=== PATIENT | male | born 1985 | race African-American/Black ===

== ENCOUNTER 2025-07-03 02:31 | Observation (INO) | payer OTHER, SELFPAY ==
[2025-07-03 02:37] VITALS: BP 147/97; PULSE 110; RESP 16; TEMP 38; O2SAT 98
--- NOTE | 2025-07-03 02:45 | RT.EKG_ITS ---
APPROVED REPORT Exam: Resting ECG Reason for Exam: QT prolonging meds Patient Location: E HR:86 bpm ECG Measurements Heart Rate 86 AXIS SD 185 P 51 QRSd 96 QRS 85 QT 370 T 18 QTc 444 Conclusion Sinus rhythm...normal P axis, V-rate 60- [address] segment or T wave abnormalities to suggest occlusive OK
--- NOTE | 2025-07-03 02:45 | DI.RAD_ITS ---
Exam(s) XR CHEST 2V PA LATERAL EXAM: XR CHEST 2V PA LATERAL CLINICAL HISTORY: fever TECHNIQUE: 2D digital imaging was performed. Two views. COMPARISON: No exams were available for comparison FINDINGS: HEART: Normal size. Aorta: Not dilated. PULMONARY VASCULATURE: Normal. MEDIASTINUM: Unremarkable. LUNGS: There is area of increased density in the right upper lobe consistent with pneumonia. The left lung is clear. PLEURAL SPACE: No pleural effusion or pneumothorax. BONE:Unremarkable for age. SOFT TISSUES: Unremarkable. IMPRESSION: Right upper lobe pneumonia. The preliminary [facility] report was reviewed. DATA REPOSITORY: RADIATION DOSE DELIVERED:
--- NOTE | 2025-07-03 02:57 | W.ED.GENAD ---
Discharge Plan Disposition Patient Disposition: Admit to [facility] Condition: Serious Discharge Details Clinical Impression: Pneumonia, HIV (human immunodeficiency virus infection), Hematuria, Proteinuria, Anemia Primary Care Provider: Unknown,Unknown ED Provider: Amalia Tijerina Home Meds and New Rx's Prescriptions: No Action escitalopram oxalate [Lexapro] 20 mg tablet 20 mg PO DAILY Dovato 50-300 mg tablet 1 tab PO DAILY HPI General Mode of arrival: ambulatory. Date/Time Provider Initiated Documentation: 07/03/25 02:34. Limitations to Documentation: no limitations. Information obtained by: patient. HPI Narrative: 39yo M with hx HTN, prediabetes, depression, HIV +, presenting for nausea and vomiting. Started to feel unwell yesterday morning, general malaise, low energy, anorexia, subjective fever, rigors. Symptoms have been getting worse and at around 9pm he began vomiting. Nonbloody nonbilious. Has not been able to keep anything down since then. Abdomen hurts just before and while he is vomiting, otherwise no abdominal pain. No constipation or diarrhea. No bloody stool. Mild intermittent cough which he reports is chronic and not worse than baseline, no difficulty breathing or chest pain. No sore throat or rhinnorhea. No dysuria or hematuria. No headache or neck pain. No recent illness. Otherwise in his usual state of health. Taking his antiretrovirals as prescribed. Gets CD4 and viral load checked every 6 months, reports most recently had undetectable viral load and CD4 in 900's. Related Data Home Medications ?Medication ?Instructions ?Recorded ?Confirmed dolutegravir 50 mg-lamivudine 300 1 tab PO DAILY 07/03/25 07/03/25 mg tablet (Dovato) escitalopram oxalate 20 mg tablet 20 mg PO DAILY 07/03/25 07/03/25 (Lexapro) Allergies Allergy/AdvReac Type Severity Reaction Status Date / Time No Known Allergies Allergy Unverified 07/03/25 02:41 General Stated Complaint: Nausea/Vomit/Diar DIVYA: 3 Exam Narrative Exam Narrative: General: Alert, in no acute distress. Head: Normocephalic, atraumatic Neck: Trachea midline, ?Neck supple. ENT: ?MMM.? No oropharygeal lesions or exudate. Cardiac: ?Tachycardiac to low 100's, regular, no murmurs appreciated Resp: No respiratory distress. CTAB. Abd: ?Soft, non-distended, nontender to light and deep palpation throughout. Negative Donald's. : ?No suprapubic tenderness. No CVA tenderness. Extremities: ?No deformities.? No peripheral edema. Neurologic: GCS 15. ? Moves all extremities freely against gravity. Negative Kernig's and Brudsinsky's. Course Vital Signs Vital signs: Vital Signs Temperature 38 C H 07/03/25 02:37 Pulse 110 H 07/03/25 02:37 Respiratory Rate 16 07/03/25 02:37 Blood Pressure 147/97 H 07/03/25 02:37 Pulse Oximetry 98 07/03/25 02:37 Temperature 38 C H 07/03/25 02:37 Temperature Source Oral 07/03/25 02:37 Pulse 110 H 07/03/25 02:37 Respiratory Rate 16 07/03/25 02:37 Blood Pressure 147/97 H 07/03/25 02:37 Blood Pressure Position Sitting 07/03/25 02:37 Pulse Oximetry 98 07/03/25 02:37 Oxygen Delivery Method Room Air 07/03/25 02:37 Oxygen Flow Rate 0 07/03/25 02:37 Medical Decision Making 39yo M with hx HTN, prediabetes, depression, HIV +, presenting for nausea and vomiting. Started to feel unwell yesterday morning, general malaise, low energy, anorexia, subjective fever, rigors; 2100 began vomiting and has not been able to keep anything down. No new respiratory symptoms, has mild cough at baseline. Low-grade fever 38.0 on arrival with HR in 110. Non-toxic on exam, lungs CTAB and absolutely no abdominal tenderness to suggest appendicitis, pancreatitis, biliary pathology, or emergent intrabdominal process. With lack of respiratory symptoms, would not treat empirically for flu with Tamiflu; will send viral swab. No bloody stool or diarrhea to suggest invasive gastroentertitis. He reports undetectable viral load and CD4 count in 900's on his most recent check within the last 6 months and is adherent to his HAART so doubt immunocomprimised; however as I am unable to get a CD4 count here to confirm this will evaluate more broadly with UA, CXR, and send blood cultures. Will give 1L IVFB, IV tylenol, toradol, zofran for symptoms while awaiting results of workup. Will send blood cultures given fever and tachycardia here and unable to confirm CD4 (is send-out). -EKG sinus tachycardia, appropriate intervals, no ST segment or T wave abnormalities to suggest occlusive NC. -Labs reviewed as below, CBC reassuring with no leukocytosis or leukopenia and normal ALC, CMP with normal electrolytes and LFTs and no actionable abnormalities, Mg normal, VBG reassuring with no acidosis and lactate is normal, lipase not suggestive of pancreatitis. UA not infected but does have trace hematuria as well as proteinuria (no hx of glomerulonephritis, no recent illness to suggest HUS). Respiratory viral swab negative for COVID, flu, RSV. -CXR independently reviewed; focal consolidation in RUL on my view, radiology read below with sizable right upper lobe pneumonia. On reassessment patient reports feeling somewhat better. Vital signs improved, HR 90's to low 100's. Will treat for CAP with ceftriaxone and azithromycin (would not cover for opportunistic infections at this time). Given his description for rigors and sweats, and inability to confirm appropriate CD4 count in a timely fashion (despite reassuring PESI) warrants admission for further workup and initial treatment of pneumonia and to follow blood cultures Discussed with [facility] hospitalist Dr. Ford and accepted to medicine service; awaiting admission orders and transfer to the floor. IMPRESSION: Sizable right upper lobe pneumonia. Lab Data Lab results reviewed: Yes I reviewed the patient's lab results. Labs: 07/03/25 03:40 Blood Blood Culture - Pending 07/03/25 03:17 Blood Blood Culture - Pending Laboratory Tests Range/Units 07/03/25 07/03/25 07/03/25 02:41 03:17 03:25 WBC (4.4-10.8) 10^3/uL 6.62 RBC (4.36-5.78) 10^6/uL 4.44 Hgb (13.5-17.5) g/dL 11.2 L Hct (40.0-50.0) % 35.3 L MCV (80-95) fL 80 MCH (27.0-33.0) pg 25.2 L MCHC (32.0-36.0) % 31.7 L RDW (11.8-14.1) % 14.6 H Plt Count (130-400) 10^3/uL 283 MPV (8.0-11.0) fL 9.7 Immature Gran % % 0.3 Neutrophils % % 66.2 Lymphocytes % % 22.1 Monocytes % % 10.3 Eosinophils % % 0.6 Basophils % % 0.5 Nucleated RBC % (0.0-0.3) % 0.0 Absolute Neutrophils (1.2-6.7) 10^3/uL 4.39 Absolute Lymphocytes (1.2-3.4) 10^3/uL 1.46 Absolute Monocytes (0.1-0.8) 10^3/uL 0.68 Absolute Eosinophils (0.0-0.7) 10^3/uL 0.04 Absolute Basophils (0.0-0.2) 10^3/uL 0.03 VBG pH (7.31-7.41) 7.46 H VBG pCO2 (41-51) mmHg 40 L VBG pO2 mmHg 38 VBG HCO3 (23-28) mmol/L 28 VBG Total CO2 (24-29) mmol/L 26 VBG O2 Saturation % 77 VBG Base Excess (-2-3) mmol/L 4 H VBG Lactate (<or=2.0) mmol/L 0.8 Sodium (136-145) mmol/L 141 Potassium (3.5-5.1) mmol/L 3.5 Chloride (98-107) mmol/L 105 Carbon Dioxide (20.0-31.0) mmol/L 26.3 Anion Gap (3-11) mmol/L 9.7 BUN (9-23) mg/dL 11 Creatinine (0.73-1.18) mg/dL 1.15 Est GFR (CKD-EPI 2020) (mL/min/1.73m2) 70.55 Glucose (74-106) mg/dL 134 H Calcium (8.3-10.6) mg/dL 8.9 Magnesium (1.6-2.6) mg/dL 1.9 Total Bilirubin (0.2-1.2) mg/dL 0.60 AST (<34) U/L 25 ALT (10-49) U/L 41 Alkaline Phosphatase (46-116) U/L 113 Total Protein (5.7-8.2) g/dL 8.3 H Albumin (3.2-5.0) g/dL 4.4 Lipase (<53) U/L 24 Urine Color (Yellow) Yellow Urine Clarity (Clear) Clear Urine pH (5-8) 7.5 Ur Specific [place] (1.005-1.025) 1.015 Urine Protein (Neg-Trace) mg/dL 100 H Urine Ketones (Negative) mg/dL Negative Urine Blood (Negative) Trace-intact H Urine Nitrite (Negative) Negative Urine Bilirubin (Negative) Small H Urine Urobilinogen (Up to 0.2) mg/dL 1.0 H Ur Leukocyte Esterase (Negative) Negative Urine RBC (0-2) HPF 5-10 H Urine WBC (0-5) HPF 0-2 Ur Epithelial Cells (Negative) HPF Negative Urine Crystals (Negative) HPF Negative Urine Bacteria (Negative) HPF Few Urine Casts (Negative) LPF Negative Urine Mucus (Negative) Moderate Urine Other (Negative) Rare Renal Ur Culture Indicated? No Urine Glucose (Negative) mg/dL Negative COVID-19 Source Nasopharynx SARS-CoV-2 (PCR) (Negative) Negative Influenza Type A (PCR) (Negative) Negative Influenza Type B (PCR) (Negative) Negative RSV (PCR) (Negative) Negative PFSH All Active Problems (Updated 07/03/25 @ 05:08 by Amalia Tijerina MD) Anemia (Chronic) Proteinuria (Acute) Hematuria (Acute) HIV (human immunodeficiency virus infection) (Acute) Pneumonia (Acute) Nausea & vomiting (Acute) HIV (human immunodeficiency virus infection) (Acute) Hematuria (Acute) Pneumonia (Acute) Social History Smoking/Tobacco Use Status: Current every day Tobacco Type: cigarettes Smoking risk assessment performed?: Yes Drug use: Never Substance use type: does not use
[2025-07-03 03:21] LABS: BE (Venous) 4 mmol/L (-2-3); HCO3 (Venous) 28 mmol/L (23-28); O2 Sat (Venous) 77 %; TCO2 (Venous) 26 mmol/L (24-29); pCO2 (Venous) 40 mmHg (41-51); pO2 (Venous) 38 mmHg
[2025-07-03 03:23] LABS: Abs Immature Grans 0.02 10^3/uL (0.0-0.06); HCT 35.3 % (40.0-50.0); HGB 11.2 g/dL (13.5-17.5); Immature Grans % 0.3 %; MCH 25.2 pg (27.0-33.0); MCHC 31.7 % (32.0-36.0); MCV 80 fL (80-95); MPV 9.7 fL (8.0-11.0); Platelet Count 283 10^3/uL (130-400); RBC 4.44 10^6/uL (4.36-5.78); RDW 14.6 % (11.8-14.1); RDW-SD 42.2 fL; WBC 6.62 10^3/uL (4.4-10.8)
[2025-07-03 03:27] LABS: COVID-19 PCR Negative (Negative); RSV PCR Negative (Negative)
[2025-07-03] MEDS: ACETAMINOPHEN 1,000 MG/100 ML BAG 400 MG IVPB (03:28)
[2025-07-03] MEDS: Normal Saline 1,000 ML 1000 ML IV (03:28)
[2025-07-03] MEDS: Ketorolac 15 MG/ML VIAL IVP (03:29)
[2025-07-03] MEDS: Ondansetron 4 MG/2 ML VIAL IVP ×2 (03:29→11:52)
[2025-07-03 03:38] LABS: Lipase 24 U/L (<53)
[2025-07-03 03:41] LABS: Magnesium 1.9 mg/dL (1.6-2.6)
[2025-07-03 03:43] LABS: ALT 41 U/L (10-49); AST 25 U/L (<34); Albumin 4.4 g/dL (3.2-5.0); Alkaline Phosphatase 113 U/L (46-116); Anion Gap 9.7 mmol/L (3-11); BUN 11 mg/dL (9-23); Bilirubin, Total 0.60 mg/dL (0.2-1.2); CO2 26.3 mmol/L (20.0-31.0); Calcium 8.9 mg/dL (8.3-10.6); Chloride 105 mmol/L (98-107); Glucose 134 mg/dL (74-106); Potassium 3.5 mmol/L (3.5-5.1); Sodium 141 mmol/L (136-145); Total Protein 8.3 g/dL (5.7-8.2)
[2025-07-03 03:50] LABS: Glucose Negative (Negative)
[2025-07-03 04:01] LABS: C & S Indicated? No; WBC 0-2 HPF (0-5)
--- NOTE | 2025-07-03 04:10 | DI.[facility]_ITS ---
PROCEDURE INFORMATION: Exam: XR Chest Exam date and time: 07/03/2025 4:00 AM Age: 39 years old Clinical indication: Fever TECHNIQUE: Imaging protocol: Radiologic exam of the chest. Views: 2 views. COMPARISON: No relevant prior studies available. FINDINGS: Lungs: Sizable right upper lobe pneumonia. Pleural spaces: Unremarkable. No pleural effusion. No pneumothorax. Heart/Mediastinum: Unremarkable. No cardiomegaly. Bones/joints: Unremarkable. IMPRESSION: Sizable right upper lobe pneumonia. Dictated and Authenticated by: Jesús Bettencourt MD. Orderin Lilliana Holland MD
[2025-07-03] MEDS: cefTRIAXone 1 GM/50 ML BAG IVPB (04:28)
[2025-07-03 04:32] VITALS: BP 114/61; PULSE 85; RESP 16; TEMP 37.6; O2SAT 99
[2025-07-03] MEDS: AZITHROMYCIN 500 MG in Normal Saline 250 ML 250 MG IVPB (04:57)
--- NOTE | 2025-07-03 05:03 | W.PM.HP.N ---
Date of service: 07/03/25 Time of Service: 05:03 Assessment and Plan Assessment and plan (1) Pneumonia: Status: Acute Assessment and plan: Continue with Rocephin and Zithromax. Not treating as immunocompromised. In regards to curb 65 and PSI his scores are relatively benign. My concern would be not tolerating his oral medications due to his ongoing nausea and vomiting (2) Hematuria: Status: Acute Assessment and plan: Recommend UA in 4 to 6 weeks to ensure resolution (3) HIV (human immunodeficiency virus infection): Status: Acute Assessment and plan: noted (4) Nausea & vomiting: Status: Acute Assessment and plan: Add Zofran History of Present Illness History of Present Illness Chief Complaint: n/v Narrative: Mr Guerra is a 39-year-old gentleman whose past medical history includes HIV which is well-controlled and following up on a regular basis as well as depression who presents with a 2-day history of nausea and vomiting. Patient denies any sick contacts, denies any new food, but has had as mention of 1 to 2-day history of nausea and vomiting. While he was in the ED a workup including radiographs and laboratory work EKG were performed. His respiratory viral panel was benign. CBC and CMP were essentially benign as well. EKG did not show any ST elevations or depressions. Chest x-ray did show right upper lobe pneumonia. Urinalysis did show proteinuria with mild hematuria. VBG did show respiratory alkalosis. Patient is a full code. Patient does smoke approximately 1 pack of cigarettes a week Review of Systems All systems reviewed & are unremarkable except as noted in HPI and below PFSH All Active Problems (Updated 07/03/25 @ 05:08 by Amalia Tijerina MD) Anemia (Chronic) Proteinuria (Acute) Hematuria (Acute) HIV (human immunodeficiency virus infection) (Acute) Pneumonia (Acute) Nausea & vomiting (Acute) HIV (human immunodeficiency virus infection) (Acute) Hematuria (Acute) Pneumonia (Acute) Social History Smoking/Tobacco Use Status: Current every day Tobacco Type: cigarettes Smoking risk assessment performed?: Yes Drug use: Never Substance use type: does not use Meds Allergies and Home Medications Allergies Allergy/AdvReac Type Severity Reaction Status Date / Time No Known Allergies Allergy Unverified 07/03/25 02:41 Home Medications ?Medication ?Instructions ?Recorded ?Confirmed ?Type dolutegravir 50 mg-lamivudine 300 1 tab PO DAILY 07/03/25 07/03/25 History mg tablet (Dovato) escitalopram oxalate 20 mg tablet 20 mg PO DAILY 07/03/25 07/03/25 History (Lexapro) Exam Narrative Exam Narrative: HEENT normocephalic atraumatic mucous memories moist oropharynx is clear Neck no lymphadenopathy no JVD no thyromegaly Cardiovascular regular rate and rhythm no murmur rubs gallops Lungs clear to auscultation bilaterally good air exchange no accessory muscle use noted Abdomen soft nontender nondistended Neurologic nonfocal Psych alert and oriented x 3 Results Labs 07/03/25 03:17 07/03/25 03:17 Labs: Laboratory Results - last 24 hr 07/03/25 07/03/25 07/03/25 02:41 03:17 03:25 WBC 6.62 RBC 4.44 Hgb 11.2 L Hct 35.3 L MCV 80 MCH 25.2 L MCHC 31.7 L RDW 14.6 H Plt Count 283 MPV 9.7 Immature Gran % 0.3 Neutrophils % 66.2 Lymphocytes % 22.1 Monocytes % 10.3 Eosinophils % 0.6 Basophils % 0.5 Nucleated RBC % 0.0 Absolute Neutrophils 4.39 Absolute Lymphocytes 1.46 Absolute Monocytes 0.68 Absolute Eosinophils 0.04 Absolute Basophils 0.03 VBG pH 7.46 H VBG pCO2 40 L VBG pO2 38 VBG HCO3 28 VBG Total CO2 26 VBG O2 Saturation 77 VBG Base Excess 4 H VBG Lactate 0.8 Sodium 141 Potassium 3.5 Chloride 105 Carbon Dioxide 26.3 Anion Gap 9.7 BUN 11 Creatinine 1.15 Est GFR (CKD-EPI 2020) 70.55 Glucose 134 H Calcium 8.9 Magnesium 1.9 Total Bilirubin 0.60 AST 25 ALT 41 Alkaline Phosphatase 113 Total Protein 8.3 H Albumin 4.4 Lipase 24 Urine Color Yellow Urine Clarity Clear Urine pH 7.5 Ur Specific [place] 1.015 Urine Protein 100 H Urine Ketones Negative Urine Blood Trace-intact H Urine Nitrite Negative Urine Bilirubin Small H Urine Urobilinogen 1.0 H Ur Leukocyte Esterase Negative Urine RBC 5-10 H Urine WBC 0-2 Ur Epithelial Cells Negative Urine Crystals Negative Urine Bacteria Few Urine Casts Negative Urine Mucus Moderate Urine Other Rare Renal Ur Culture Indicated? No Urine Glucose Negative COVID-19 Source Nasopharynx SARS-CoV-2 (PCR) Negative Influenza Type A (PCR) Negative Influenza Type B (PCR) Negative RSV (PCR) Negative Last Vital Signs Temp 37.6 C H 07/03/25 04:32 Pulse 85 07/03/25 04:32 Resp 16 07/03/25 04:32 BP 114/61 07/03/25 04:32 Pulse Ox 99 07/03/25 04:32 VTE Prohylaxis Risk Level: Low Risk Contraindications: None Prophylaxis: Patient ambulatory Time Spent Time spent with Patient: <40 minutes Time was spent: preparing to see the patient(eg.review tests), obtaining and/or reviewing separately otained hiistory, ordering medications,tests, procedures, referring, communicating with other health home health care respiratory therapist, indepentently interpreting results, counseling the patient and care coordination
[2025-07-03 06:10] LABS: Abs Immature Grans 0.02 10^3/uL (0.0-0.06); HCT 31.9 % (40.0-50.0); HGB 10.2 g/dL (13.5-17.5); Immature Grans % 0.3 %; MCH 25.5 pg (27.0-33.0); MCHC 32.0 % (32.0-36.0); MCV 80 fL (80-95); MPV 9.6 fL (8.0-11.0); Platelet Count 248 10^3/uL (130-400); RBC 4.00 10^6/uL (4.36-5.78); RDW 14.6 % (11.8-14.1); RDW-SD 42.5 fL; WBC 6.17 10^3/uL (4.4-10.8)
[2025-07-03 06:22] VITALS: BP 139/97; PULSE 86; RESP 24; TEMP 36.9; O2SAT 98
[2025-07-03 06:23] VITALS: BP 139/97; PULSE 86; RESP 24; TEMP 36.9; O2SAT 98
[2025-07-03 06:32] LABS: ALT 37 U/L (10-49); AST 23 U/L (<34); Albumin 3.9 g/dL (3.2-5.0); Alkaline Phosphatase 101 U/L (46-116); Anion Gap 9.3 mmol/L (3-11); BUN 10 mg/dL (9-23); Bilirubin, Total 0.50 mg/dL (0.2-1.2); CO2 24.7 mmol/L (20.0-31.0); Calcium 8.5 mg/dL (8.3-10.6); Chloride 106 mmol/L (98-107); Glucose 106 mg/dL (74-106); Potassium 3.8 mmol/L (3.5-5.1); Sodium 140 mmol/L (136-145); Total Protein 7.5 g/dL (5.7-8.2)
[2025-07-03 07:15] VITALS: BP 130/84; PULSE 75; RESP 18; TEMP 36.4; O2SAT 99
[2025-07-03] MEDS: Normal Saline 1,000 ML 125 ML IV (08:35)
--- NOTE | 2025-07-03 08:53 | PDOC.CMIN ---
Date of service: 07/03/25 Time of Service: 08:53 Care Management Initial Assmt Initial Assessment Reason for Hospitalization: FLU Functional Status/Living Situation Patient Presentation: Iker was awake and lying in bed when CM met with him. He is reportedly feeling much better, and is planning to discharge home later today if able. Iker lives alone in [facility]. He drives and is independent at baseline. He is a teacher at [employer]. He has several local friends, no local family. He is , however his works in [place] and he is planning to travel to there next week. Patient denies any concerns at this time. He feels it would be best for him to return to work on , and would appreciate a return to work note. Also, Iker is looking to establish care with a local PCP, and was provided with a list of local practices. Town of Residence: [facility] Resides with: Spouse (Spouse Mason Son) Significant Other/Family: Out of area ([place]) Natural Supports: Spouse Mason Son Employment Status: Employed ([employer]) Instrumental Activities of Daily Living (ADLs): Independent Medications Medication Management: No Issues/Barriers identified Advance Directives Advance Directives: Do you have an Advance Directive: AD On File at [facility]: Date Asked AD Date Reviewed COLST On File at [facility] COLST Date Scanned Code Status Resuscitation Status Full Code Portal Pt does not currently have a portal and education provided: Yes Insurance Coverage/Financial Issues [facility] [id number] Care Team Visit Care Team Role Provider Type Iliana Vazquez APRN MD [facility] STAFF PHYSICIAN Unknown Unknown Primary Care Provider STAFF PHYSICIAN Amalia Tijerina MD Emergency Provider [facility] STAFF PHYSICIAN Massimo Ford MD Admit Provider [facility] STAFF PHYSICIAN Attending Provider Discharge Potential Discharge Needs: PCP F/U Appt Anticipated Barriers to Discharge: None Identified Patient/Family Education Needs: Review discharge instructions, discuss Ask Me Three Transportation: Private vehicle Plan: Anticipate, Iker will discharge home via private vehicle when medically ready to discharge. Patient will need a T-Doc appointment, until able to establish care with a PCP of choice and continue per the discharge plan of care as directed. Will need a return to work note (is looking to go back .) No new services are anticipated at this time. Social Determinants of Health Screening Social Determinants of health last assessed in clinic: 12/08/25 Will the Patient Participate in the Screening?: Declined to provide Do you worry about having a steady place to live?: no Problems where you live: no known problems In the past 12 months, have you had to go without electric, gas, oil or water in your home?: no Has lack of transportation kept you from medical appointments or from doing things needed for daily living?: no Has anyone in your life made you feel unsafe or unsupported?: no How hard is it for you to pay for the very basics like food, housing, medical care, and heating? Would you say it is:: Not hard at all Do you want help finding or keeping work or a job?: I do not need or want help If for any reason you need help with day-to-day activities such as bathing, preparing meals, shopping, managing finances, etc., do you get the help you need?: I don?t need any help How often do you feel lonely or isolated from those around you?: Never Do you speak a language other than Nepalese at home?: No Does the patient want assistance with any of the above?: No PFSH All Active Problems (Updated 07/03/25 @ 09:37 by Iliana Vazquez APRN) Sepsis (Acute) Anemia (Chronic) Proteinuria (Acute) Hematuria (Acute) HIV (human immunodeficiency virus infection) (Acute) Pneumonia (Acute) Nausea & vomiting (Acute) HIV (human immunodeficiency virus infection) (Acute) Hematuria (Acute) Pneumonia (Acute) Social History Smoking/Tobacco Use Status: Current every day Tobacco Type: cigarettes Smoking risk assessment performed?: Yes Drug use: Never Substance use type: does not use Housing: house
--- NOTE | 2025-07-03 09:34 | W.PM.PROGNOT ---
Date of Service Date of service: 07/03/25 Time of Service: 11:00 Assessment and Plan Assessment and plan (1) Sepsis: Status: Acute Assessment and plan: Presenting with fever at 38, tachycardia with heart rate at 110 with source of sepsis being respiratory as per chest imaging blood culture pending As per point 2 (2) Pneumonia: Status: Acute Assessment and plan: Ongoing Rocephin and Zithromax with plan to continue oral antibiotics at discharge. Reporting CD4 around 900 not treating as immunocompromised at this point CD4 count pending. Ongoing concern of oral med tolerance due to nausea after breakfast (3) Hematuria: Status: Acute Assessment and plan: Ongoing monitoring- no report of gross hematuria or dysuria- Follow-up with PCP to monitor resolution UA in 4 to 6 weeks (4) HIV (human immunodeficiency virus infection): Status: Acute Assessment and plan: On Dovato- will continue (5) Nausea & vomiting: Status: Acute Assessment and plan: Continue ondansetron (6) Depression: Status: Chronic Assessment and plan: On home Lexapro dose Discussed w Dr. Resendez Subjective Subjective Patient reports: tolerating liquids well, voiding w/o difficulty, no bowel movement, nausea, afebrile and other (Reports fatigue, chills, night sweats, nausea); denies tolerating a regular diet, diarrhea, vomiting or shortness of breath Exam Narrative Exam Narrative: 39 years old male looking of stated age, nonicteric sclera, no JVD, no focal neurological deficit, alert and x 4, clear lung and unlabored breathing, S1-S2 no murmur, abdomen is nondistended soft and nontender, no CVA tenderness, moves all 4 extremities Objective Last Vital Signs Temp 36.4 C L 07/03/25 07:15 Pulse 75 07/03/25 07:15 Resp 18 07/03/25 07:15 BP 130/84 07/03/25 07:15 Pulse Ox 99 07/03/25 07:15 Laboratory Results - last 24 hr 07/03/25 07/03/25 07/03/25 02:41 03:17 03:25 WBC 6.62 RBC 4.44 Hgb 11.2 L Hct 35.3 L MCV 80 MCH 25.2 L MCHC 31.7 L RDW 14.6 H Plt Count 283 MPV 9.7 Immature Gran % 0.3 Neutrophils % 66.2 Lymphocytes % 22.1 Monocytes % 10.3 Eosinophils % 0.6 Basophils % 0.5 Nucleated RBC % 0.0 Absolute Neutrophils 4.39 Absolute Lymphocytes 1.46 Absolute Monocytes 0.68 Absolute Eosinophils 0.04 Absolute Basophils 0.03 VBG pH 7.46 H VBG pCO2 40 L VBG pO2 38 VBG HCO3 28 VBG Total CO2 26 VBG O2 Saturation 77 VBG Base Excess 4 H VBG Lactate 0.8 Sodium 141 Potassium 3.5 Chloride 105 Carbon Dioxide 26.3 Anion Gap 9.7 BUN 11 Creatinine 1.15 Est GFR (CKD-EPI 2020) 70.55 Glucose 134 H Calcium 8.9 Magnesium 1.9 Total Bilirubin 0.60 AST 25 ALT 41 Alkaline Phosphatase 113 Total Protein 8.3 H Albumin 4.4 Lipase 24 Urine Color Yellow Urine Clarity Clear Urine pH 7.5 Ur Specific [place] 1.015 Urine Protein 100 H Urine Ketones Negative Urine Blood Trace-intact H Urine Nitrite Negative Urine Bilirubin Small H Urine Urobilinogen 1.0 H Ur Leukocyte Esterase Negative Urine RBC 5-10 H Urine WBC 0-2 Ur Epithelial Cells Negative Urine Crystals Negative Urine Bacteria Few Urine Casts Negative Urine Mucus Moderate Urine Other Rare Renal Ur Culture Indicated? No Urine Glucose Negative COVID-19 Source Nasopharynx SARS-CoV-2 (PCR) Negative Influenza Type A (PCR) Negative Influenza Type B (PCR) Negative RSV (PCR) Negative 07/03/25 06:04 WBC 6.17 RBC 4.00 L Hgb 10.2 L Hct 31.9 L MCV 80 MCH 25.5 L MCHC 32.0 RDW 14.6 H Plt Count 248 MPV 9.6 Immature Gran % 0.3 Neutrophils % 58.3 Lymphocytes % 27.6 Monocytes % 13.0 Eosinophils % 0.6 Basophils % 0.2 Nucleated RBC % 0.0 Absolute Neutrophils 3.60 Absolute Lymphocytes 1.70 Absolute Monocytes 0.80 Absolute Eosinophils 0.04 Absolute Basophils 0.01 VBG pH VBG pCO2 VBG pO2 VBG HCO3 VBG Total CO2 VBG O2 Saturation VBG Base Excess VBG Lactate Sodium 140 Potassium 3.8 Chloride 106 Carbon Dioxide 24.7 Anion Gap 9.3 BUN 10 Creatinine 1.01 Est GFR (CKD-EPI 2020) 81.95 Glucose 106 Calcium 8.5 Magnesium Total Bilirubin 0.50 AST 23 ALT 37 Alkaline Phosphatase 101 Total Protein 7.5 Albumin 3.9 Lipase Urine Color Urine Clarity Urine pH Ur Specific [place] Urine Protein Urine Ketones Urine Blood Urine Nitrite Urine Bilirubin Urine Urobilinogen Ur Leukocyte Esterase Urine RBC Urine WBC Ur Epithelial Cells Urine Crystals Urine Bacteria Urine Casts Urine Mucus Urine Other Ur Culture Indicated? Urine Glucose COVID-19 Source SARS-CoV-2 (PCR) Influenza Type A (PCR) Influenza Type B (PCR) RSV (PCR) VTE Prohylaxis Risk Level: Low Risk Contraindications: None Prophylaxis: Patient ambulatory Time Spent with Patient Time Spent with Patient: >50 minutes Time was spent: preparing to see the patient(eg.review tests), obtaining and/or reviewing separately otained hiistory, ordering medications,tests, procedures, referring, communicating with other health lead caregiver, indepentently interpreting results, counseling the patient, care coordination and other
[2025-07-03] MEDS: Escitalopram 20 MG TAB PO (09:40)
--- NOTE | 2025-07-03 11:47 | PHA.REVIEW2 ---
Pharmacy Admission Review Admission Clinical Review Admission Pharmacy Review: (Updated 07/03/25 @ 09:37 by Iliana Vazquez APRN) Sepsis (Acute) Nausea & vomiting (Acute) HIV (human immunodeficiency virus infection) (Acute) Hematuria (Acute) Pneumonia (Acute) No Known Allergies Allergy (Unverified 07/03/25 02:41) Resuscitation Status Full Code Height 6 ft 1 in Weight 126.3 kg Pharmacy Admission Review Renal Dosing Renal Dosing: BUN 10 mg/dL (9-23) 07/03/25 06:04 Creatinine 1.01 mg/dL (0.73-1.18) 07/03/25 06:04 Medications needing adjustments: Reviewed (ZMUG=690; NO MEDS NEED RENAL ADJUSTMENT) Anticoagulation Anticoagulation: Hgb 10.2 g/dL (13.5-17.5) L 07/03/25 06:04 Hct 31.9 % (40.0-50.0) L 07/03/25 06:04 Plt Count 248 10^3/uL (130-400) 07/03/25 06:04 Creatinine 1.01 mg/dL (0.73-1.18) 07/03/25 06:04 DVT Prophylaxis: N/A (PT IS AMBULATORY) Opiate Usage Evaluate Pain Scale/Pains Meds: N/A (NOT ORDERED) Relevant Labs Relevant Labs: Sodium 140 mmol/L (136-145) 07/03/25 06:04 Potassium 3.8 mmol/L (3.5-5.1) 07/03/25 06:04 Chloride 106 mmol/L (98-107) 07/03/25 06:04 Magnesium 1.9 mg/dL (1.6-2.6) 07/03/25 03:17 Electrolytes, C-Reactive P, ESR: Reviewed (NO INTERVENTION ) DM Control DM Control: Reviewed (AM GLUCOSE NORMAL. NO HISTORY OF DM) Cardiac Review BP, HR, EF%: Reviewed (BP & HR NORMAL. NO HISTORY OF HTN OR ON MEDS AT HOME ) QTc Review QTc: Reviewed (GOM=155; MONITOR W/ AZITHROMYCIN AND LEXAPRO) IV to PO Switch IV Medications: Reviewed Home Meds Home Med List reviewed: Reviewed Relevent Home Meds Not ordered & why?: DOVATO NOT ORDER B/C NON-FORMULARY. PT TO HAVE BROUGHT IN IF NOT DISCHARGED. Current Meds Current Medication Order Review: Reviewed Pharmacy Antibiotic Review Pharmacy Antibiotic Activity: Reviewed, no change (ON DAY 1 OF CEFTRIAXONE/AZITHROMYCIN FOR POSSIBLE PNEUMONIA)
[2025-07-03 14:00] LABS: Lab Add On Test DONE
--- NOTE | 2025-07-03 16:22 | W.NUTRFU ---
Date of service: 07/03/25 Time of Service: 16:22 Nutrition Note NOTE: I visited with Mr Guerra twice today while helping to obtain patient menus for the kitchen. reports fair appetite. Denies any significant unintentional weight loss. Hgb/Hct low today - offered education on iron rich foods. Moved bowels today. Nutrition dx: class II obesity related to excess kcals AEB current BMI of 36.7. Pt declines additional educatoin and has no questions regarding his nutritional needs at this time. Initially assessed as low acute nutrition risk. will continue to monitor intake, weight, nutrition-related labs. Time Spent in Nutritional Counseling and Treatment: 5 min
[2025-07-03 20:22] VITALS: BP 133/93; PULSE 84; RESP 16; TEMP 36; O2SAT 100
--- NOTE | 2025-07-03 22:45 | W.PC.ACHO ---
Registration Status: ADM ANDREW Primary Language: Preferred Language: ED Information & Data Chief Complaint Nausea/Vomit/Diar 07/03/25 03:04 Triage Note Nausea and Emesis, started 07/03/25 02:37 around 07/02/25 2100, chills and feeling sluggish Most Recent Vital Signs Temperature 36 C L 07/03/25 20:22 Temperature Source Temporal Artery Scan 07/03/25 20:22 Pulse 84 07/03/25 20:22 Respiratory Rate 16 07/03/25 20:22 Respiratory Effort Normal 07/03/25 06:23 Respiratory Depth Normal 07/03/25 06:23 Respiratory Pattern Normal 07/03/25 06:23 Blood Pressure 133/93 H 07/03/25 20:22 Blood Pressure Mean 106 07/03/25 20:22 Blood Pressure Position Sitting 07/03/25 02:37 Pulse Oximetry 100 07/03/25 20:22 Oxygen Delivery Method Room Air 07/03/25 20:22 Oxygen Flow Rate 0 07/03/25 20:22 Pain Level 0 07/03/25 20:22 Allergies No Known Allergies Allergy (Unverified 07/03/25 02:41) Precautions Isolation Standard precaution 07/03/25 02:43 Active Medications Generic Name Dose Route Start Last Admin Trade Name Freq PRN Reason Stop Dose Admin Escitalopram Oxalate 20 mg 07/03/25 08:30 07/03/25 09:40 Escitalopram 20 Mg Tab PO 20 mg DAILY SAMEER Administration Ondansetron HCl 4 mg 07/03/25 05:10 07/03/25 11:52 Ondansetron 4 Mg/2 Ml Vial IVP 4 mg Q6H PRN PRN Administration IV IV Catheter Type [Right Saline Lock Antecubital] IV Catheter Gauge [Right 18 Antecubital] Diagnostics 07/03/25 07/03/25 07/03/25 Range/Units 13:59 06:04 03:25 WBC 6.17 (4.4-10.8) 10^3/uL RBC 4.00 L (4.36-5.78) 10^6/uL Hgb 10.2 L (13.5-17.5) g/dL Hct 31.9 L (40.0-50.0) % MCV 80 (80-95) fL MCH 25.5 L (27.0-33.0) pg MCHC 32.0 (32.0-36.0) % RDW 14.6 H (11.8-14.1) % Plt Count 248 (130-400) 10^3/uL MPV 9.6 (8.0-11.0) fL Immature Gran % 0.3 % Neutrophils % 58.3 % Lymphocytes % 27.6 % Monocytes % 13.0 % Eosinophils % 0.6 % Basophils % 0.2 % Nucleated RBC % 0.0 (0.0-0.3) % Absolute Neutrophils 3.60 (1.2-6.7) 10^3/uL Absolute Lymphocytes 1.70 (1.2-3.4) 10^3/uL Absolute Monocytes 0.80 (0.1-0.8) 10^3/uL Absolute Eosinophils 0.04 (0.0-0.7) 10^3/uL Absolute Basophils 0.01 (0.0-0.2) 10^3/uL VBG pH (7.31-7.41) VBG pCO2 (41-51) mmHg VBG pO2 mmHg VBG HCO3 (23-28) mmol/L VBG Total CO2 (24-29) mmol/L VBG O2 Saturation % VBG Base Excess (-2-3) mmol/L VBG Lactate (<or=2.0) mmol/L Sodium 140 (136-145) mmol/L Potassium 3.8 (3.5-5.1) mmol/L Chloride 106 (98-107) mmol/L Carbon Dioxide 24.7 (20.0-31.0) mmol/L Anion Gap 9.3 (3-11) mmol/L BUN 10 (9-23) mg/dL Creatinine 1.01 (0.73-1.18) mg/dL Est GFR (CKD-EPI 2020) 81.95 (mL/min/1.73m2) Glucose 106 (74-106) mg/dL Calcium 8.5 (8.3-10.6) mg/dL Magnesium (1.6-2.6) mg/dL Total Bilirubin 0.50 (0.2-1.2) mg/dL AST 23 (<34) U/L ALT 37 (10-49) U/L Alkaline Phosphatase 101 (46-116) U/L Total Protein 7.5 (5.7-8.2) g/dL Albumin 3.9 (3.2-5.0) g/dL Lipase (<53) U/L Urine Color Yellow (Yellow) Urine Clarity Clear (Clear) Urine pH 7.5 (5-8) Ur Specific [place] 1.015 (1.005-1.025) Urine Protein 100 H (Neg-Trace) mg/dL Urine Ketones Negative (Negative) mg/dL Urine Blood Trace-intact H (Negative) Urine Nitrite Negative (Negative) Urine Bilirubin Small H (Negative) Urine Urobilinogen 1.0 H (Up to 0.2) mg/dL Ur Leukocyte Esterase Negative (Negative) Urine RBC 5-10 H (0-2) HPF Urine WBC 0-2 (0-5) HPF Ur Epithelial Cells Negative (Negative) HPF Urine Crystals Negative (Negative) HPF Urine Bacteria Few (Negative) HPF Urine Casts Negative (Negative) LPF Urine Mucus Moderate (Negative) Urine Other Rare Renal (Negative) Ur Culture Indicated? No Urine Glucose Negative (Negative) mg/dL % CD3 Cells Pending Absolute CD3 Count Pending % CD4 Cells Pending Absolute CD4 Count Pending CD4/CD8 Ratio Pending % CD8 Cells Pending Absolute CD8 Count Pending COVID-19 Source SARS-CoV-2 (PCR) (Negative) Influenza Type A (PCR) (Negative) Influenza Type B (PCR) (Negative) RSV (PCR) (Negative) Add-On Test Request DONE 07/03/25 07/03/25 Range/Units 03:17 02:41 WBC 6.62 (4.4-10.8) 10^3/uL RBC 4.44 (4.36-5.78) 10^6/uL Hgb 11.2 L (13.5-17.5) g/dL Hct 35.3 L (40.0-50.0) % MCV 80 (80-95) fL MCH 25.2 L (27.0-33.0) pg MCHC 31.7 L (32.0-36.0) % RDW 14.6 H (11.8-14.1) % Plt Count 283 (130-400) 10^3/uL MPV 9.7 (8.0-11.0) fL Immature Gran % 0.3 % Neutrophils % 66.2 % Lymphocytes % 22.1 % Monocytes % 10.3 % Eosinophils % 0.6 % Basophils % 0.5 % Nucleated RBC % 0.0 (0.0-0.3) % Absolute Neutrophils 4.39 (1.2-6.7) 10^3/uL Absolute Lymphocytes 1.46 (1.2-3.4) 10^3/uL Absolute Monocytes 0.68 (0.1-0.8) 10^3/uL Absolute Eosinophils 0.04 (0.0-0.7) 10^3/uL Absolute Basophils 0.03 (0.0-0.2) 10^3/uL VBG pH 7.46 H (7.31-7.41) VBG pCO2 40 L (41-51) mmHg VBG pO2 38 mmHg VBG HCO3 28 (23-28) mmol/L VBG Total CO2 26 (24-29) mmol/L VBG O2 Saturation 77 % VBG Base Excess 4 H (-2-3) mmol/L VBG Lactate 0.8 (<or=2.0) mmol/L Sodium 141 (136-145) mmol/L Potassium 3.5 (3.5-5.1) mmol/L Chloride 105 (98-107) mmol/L Carbon Dioxide 26.3 (20.0-31.0) mmol/L Anion Gap 9.7 (3-11) mmol/L BUN 11 (9-23) mg/dL Creatinine 1.15 (0.73-1.18) mg/dL Est GFR (CKD-EPI 2020) 70.55 (mL/min/1.73m2) Glucose 134 H (74-106) mg/dL Calcium 8.9 (8.3-10.6) mg/dL Magnesium 1.9 (1.6-2.6) mg/dL Total Bilirubin 0.60 (0.2-1.2) mg/dL AST 25 (<34) U/L ALT 41 (10-49) U/L Alkaline Phosphatase 113 (46-116) U/L Total Protein 8.3 H (5.7-8.2) g/dL Albumin 4.4 (3.2-5.0) g/dL Lipase 24 (<53) U/L Urine Color (Yellow) Urine Clarity (Clear) Urine pH (5-8) Ur Specific [place] (1.005-1.025) Urine Protein (Neg-Trace) mg/dL Urine Ketones (Negative) mg/dL Urine Blood (Negative) Urine Nitrite (Negative) Urine Bilirubin (Negative) Urine Urobilinogen (Up to 0.2) mg/dL Ur Leukocyte Esterase (Negative) Urine RBC (0-2) HPF Urine WBC (0-5) HPF Ur Epithelial Cells (Negative) HPF Urine Crystals (Negative) HPF Urine Bacteria (Negative) HPF Urine Casts (Negative) LPF Urine Mucus (Negative) Urine Other (Negative) Ur Culture Indicated? Urine Glucose (Negative) mg/dL % CD3 Cells Absolute CD3 Count % CD4 Cells Absolute CD4 Count CD4/CD8 Ratio % CD8 Cells Absolute CD8 Count COVID-19 Source Nasopharynx SARS-CoV-2 (PCR) Negative (Negative) Influenza Type A (PCR) Negative (Negative) Influenza Type B (PCR) Negative (Negative) RSV (PCR) Negative (Negative) Add-On Test Request 07/03/25 03:40 Blood Culture - Pending Blood 07/03/25 03:17 Blood Culture - Pending Blood Intake and Output - 24 Hour Total 07/03/25 02:31 thru 07/03/25 20:32 Intake Total 2410 Balance 2410 Weight 126.3 kg Intake: IV 2410 Other: Urine Color Yellow Urine Appearance Clear Urine Odor Normal Comment Pt voids an immeasurable amount ind. into the toilet. Falls Risk Assessment History of Falls No History 07/03/25 06:23 Contributing Factors No Factors 07/03/25 06:23 Ambulatory Aids Independent 07/03/25 06:23 Tubes/Lines None 07/03/25 06:23 Gait Evaluation No gait disturbance 07/03/25 06:23 Cognition No cognitive impairment 07/03/25 02:45 Fall Total Score 0 07/03/25 06:23 Level of Risk Standard/Low Risk 07/03/25 06:23 Problems Depression (Chronic) Sepsis (Acute) Nausea & vomiting (Acute) HIV (human immunodeficiency virus infection) (Acute) Hematuria (Acute) Pneumonia (Acute) Attestation Statement: By documenting the first initial, last name, and credentials of the reporting nurse below, both parties acknowledge that all relevant information regarding the patient handoff has been communicated, and that all questions have been addressed to ensure continuity and safety of care. Additional Patient Information/Comments: vomiting/nausea, and fever, chest x-ray showed pneumonia, AOx4, on RA, not in respiratory distress, independent, VS stable Report Received From: Mohsen barron
[2025-07-04] MEDS: cefTRIAXone 2 GM/50 ML BAG IVPB (04:16)
[2025-07-04] MEDS: Normal Saline Flush 10 ML SYR (04:17)
[2025-07-04 06:45] LABS: Anion Gap 8.1 mmol/L (3-11); BUN 10 mg/dL (9-23); CO2 25.9 mmol/L (20.0-31.0); Calcium 8.5 mg/dL (8.3-10.6); Chloride 106 mmol/L (98-107); Glucose 98 mg/dL (74-106); Potassium 3.8 mmol/L (3.5-5.1); Sodium 140 mmol/L (136-145)
[2025-07-04 06:47] LABS: Magnesium 2.0 mg/dL (1.6-2.6)
[2025-07-04 07:10] VITALS: BP 126/89; PULSE 79; RESP 17; TEMP 36.6; O2SAT 99
[2025-07-04 07:17] LABS: Abs Immature Grans 0.02 10^3/uL (0.0-0.06); HCT 33.0 % (40.0-50.0); HGB 10.4 g/dL (13.5-17.5); Immature Grans % 0.4 %; MCH 25.4 pg (27.0-33.0); MCHC 31.5 % (32.0-36.0); MCV 81 fL (80-95); MPV 10.5 fL (8.0-11.0); Platelet Count 244 10^3/uL (130-400); RBC 4.10 10^6/uL (4.36-5.78); RDW 14.7 % (11.8-14.1); RDW-SD 43.1 fL; WBC 5.13 10^3/uL (4.4-10.8)
--- NOTE | 2025-07-04 08:15 | PDOC.CMDIS ---
Date of service: 07/04/25 Time of Service: 08:15 LACE Index Scoring Tool Questions: Length of Stay (in days): 1 Was the patient admitted via the E.D.?: Yes Comorbidities: AIDS (HIV) E.D. Visits: 1 Answers: Total Score: 10 Risk of Readmission: High Risk Care Management Discharge Plan Reason for Hospitalization: Pneumonia Discharge Plan: Iker is discharged home via private vehicle. He will follow up with community providers and continue per her discharge plan of care. Patient is planning to establish care at [facility] and has a hospital follow up scheduled for 07/19 at 2pm. No new services are ordered prior to discharge. CM provided patient with a return to work letter. Patient/Family Education Needs: Review discharge instructions and plan for outpatient follow. Discuss ask me three.
[2025-07-04] MEDS: AZITHROMYCIN 250 MG in Normal Saline 250 ML IVPB (08:23)
[2025-07-04] MEDS: Escitalopram 20 MG TAB PO (08:24)
--- NOTE | 2025-07-04 13:21 | DSE_ITS ---
Date of service: 07/04/25 Time of Service: 13:21 DS: Diagnosis Discharge Diagnosis (1) Sepsis: Status: Acute (2) Pneumonia: Status: Acute (3) Hematuria: Status: Acute (4) HIV (human immunodeficiency virus infection): Status: Acute (5) Nausea & vomiting: Status: Acute (6) Depression: Status: Chronic Discharge Plan Disposition Patient Disposition: Home Condition: Improving Discharge Details Reason For Visit: Pneumonia Admit Date/Time: 07/03/25 04:59 Admit Provider: Massimo Ford Attending Provider: Massimo Ford Primary Care Provider: Unknown,Unknown Hospital Course Hospital Course: This 39-year-old male patient with past medical history of HIV with reported compliance on Dovato, nicotine dependence of 1 pack per week of cigarettes and depression presented for evaluation in the ED at [facility] with a 2-day history of nausea and vomiting, chills and night sweats and fever. On arrival temperature was 38 with HR 110 w/o hypoxemia or hypotension. Work-up in the ED was positive for right upper lobe opacity consistent with pneumonia as per CXR. Blood work was without actionable findings except for PH of 7.46, PCO2 40 and HCO3 28, glucose at 134. Urinalysis did show proteinuria with trace hematuria. Cell count added to blood work and pending but reported CD4 around 900's. The patient was admitted to the medical surgical floor by the hospitalist for IV antibiotic treatment in the setting sepsis d/t CAP and ongoing nausea and vomiting. Treatment initiated in the ED with Azithromycin, ceftriaxone and IV fluid. IV antibiotics and IVF continued on admission in addition to antiemetic drugs. Blood cultures are negtive at 24 hours. The patient clinically improved and GI symptoms totally resolved today, no further reporting of fever or night sweat overnight. The patient will be discharged home on oral antibiotics and mucinex and will need to follow-up with outpatient provider within 7 days of discharge. Counseling for smoking cessation to continue outpatient and recommendation to consider repeating chest imaging at 6 weeks as per outpatient provider. Discussed with Dr. Resendez Recommendations for Follow Up Recommended tests to be ordered by follow up provider: Consider Repeat imaging at 6 weeks, CD4 /CD8 count pending , smoking cessation, UA Home Meds and New Rx's Prescriptions: New azithromycin 250 mg tablet 250 mg PO DAILY 4 Days Qty: 4 0RF Rx Instructions: start on day 2 of therapy cefpodoxime 200 mg tablet 200 mg PO BID Qty: 8 0RF Rx Instructions: must administer with a meal/food- guaifenesin [Mucinex] 600 mg tablet extended release 12hr 600 mg PO BID Qty: 10 0RF Continued escitalopram oxalate [Lexapro] 20 mg tablet 20 mg PO DAILY Dovato 50-300 mg tablet 1 tab PO DAILY Discharge Instructions Stand Alone Forms: Portal Information Referrals: Unknown,Unknown [Primary Care Provider, Unknown] Referral Note: Follow-up with outpatient provider within 7 days of discharge Activity:: Activity as Tolerated Equipment/Supplies:: No Equipment Needed Diet:: As Tolerated DS: Summary Time Spent with Patient providing and/or coordinating discharge services: Greater than 30 minutes Status at Discharge Functional status at discharge: independent ambulation Overall status at discharge: patient is progressing back to baseline Mental Status: mental status grossly normal Speech and Movement: speech and movement normal Mood: congruent mood Affect: normal affect Exam Narrative Exam Narrative: 39 years old male looking of stated age, nonicteric sclera, no JVD, no focal neurological deficit, alert and x 4, clear lung and unlabored breathing, S1-S2 no murmur, abdomen is nondistended soft and nontender, no CVA tenderness, moves all 4 extremities Psych Mental Status: mental status grossly normal Speech and Movement: speech and movement normal Mood: congruent mood Affect: normal affect DS: Data Vitals/I&O Vitals and I&O: Vital Signs Temperature 36.6 C 07/04/25 07:10 Temperature Source Temporal Artery Scan 07/04/25 07:10 Pulse 79 07/04/25 07:10 Respiratory Rate 17 07/04/25 07:10 Respiratory Effort Normal 07/03/25 06:23 Respiratory Depth Normal 07/03/25 06:23 Respiratory Pattern Normal 07/03/25 06:23 Blood Pressure 126/89 07/04/25 07:10 Blood Pressure Mean 101 07/04/25 07:10 Blood Pressure Position Sitting 07/03/25 02:37 Pulse Oximetry 99 07/04/25 07:10 Oxygen Delivery Method Room Air 07/04/25 07:10 Oxygen Flow Rate 0 07/04/25 07:10 Pain Level 0 07/04/25 08:29 Intake & Output 07/03/25 07/04/25 07/04/25 23:59 11:59 23:59 Intake Total 1010 / 2410 500 / 500 Balance 1010 / 2410 500 / 500 Weight 125 kg Intake: IV 1010 / 2410 280 / 280 Oral 220 / 220 Other: Urine Color Yellow Yellow Urine Appearance Clear Clear Urine Odor Normal None Comment Pt voids an immeasurable amount ind. into the toilet. Pt voids and immeasurable amount ind. into the toilet. Data Completed and Pending Pending Labs at Discharge: 07/03/25 07/03/25 07/03/25 02:41 03:17 03:25 WBC 6.62 RBC 4.44 Hgb 11.2 L Hct 35.3 L MCV 80 MCH 25.2 L MCHC 31.7 L RDW 14.6 H Plt Count 283 MPV 9.7 Immature Gran % 0.3 Neutrophils % 66.2 Lymphocytes % 22.1 Monocytes % 10.3 Eosinophils % 0.6 Basophils % 0.5 Nucleated RBC % 0.0 Absolute Neutrophils 4.39 Absolute Lymphocytes 1.46 Absolute Monocytes 0.68 Absolute Eosinophils 0.04 Absolute Basophils 0.03 VBG pH 7.46 H VBG pCO2 40 L VBG pO2 38 VBG HCO3 28 VBG Total CO2 26 VBG O2 Saturation 77 VBG Base Excess 4 H VBG Lactate 0.8 Sodium 141 Potassium 3.5 Chloride 105 Carbon Dioxide 26.3 Anion Gap 9.7 BUN 11 Creatinine 1.15 Est GFR (CKD-EPI 2020) 70.55 Glucose 134 H Calcium 8.9 Magnesium 1.9 Total Bilirubin 0.60 AST 25 ALT 41 Alkaline Phosphatase 113 Total Protein 8.3 H Albumin 4.4 Lipase 24 Urine Color Yellow Urine Clarity Clear Urine pH 7.5 Ur Specific [place] 1.015 Urine Protein 100 H Urine Ketones Negative Urine Blood Trace-intact H Urine Nitrite Negative Urine Bilirubin Small H Urine Urobilinogen 1.0 H Ur Leukocyte Esterase Negative Urine RBC 5-10 H Urine WBC 0-2 Ur Epithelial Cells Negative Urine Crystals Negative Urine Bacteria Few Urine Casts Negative Urine Mucus Moderate Urine Other Rare Renal Ur Culture Indicated? No Urine Glucose Negative % CD3 Cells Absolute CD3 Count % CD4 Cells Absolute CD4 Count CD4/CD8 Ratio % CD8 Cells Absolute CD8 Count COVID-19 Source Nasopharynx SARS-CoV-2 (PCR) Negative Influenza Type A (PCR) Negative Influenza Type B (PCR) Negative RSV (PCR) Negative Add-On Test Request 07/03/25 07/03/25 07/04/25 06:04 13:59 05:52 WBC 6.17 5.13 RBC 4.00 L 4.10 L Hgb 10.2 L 10.4 L Hct 31.9 L 33.0 L MCV 80 81 MCH 25.5 L 25.4 L MCHC 32.0 31.5 L RDW 14.6 H 14.7 H Plt Count 248 244 MPV 9.6 10.5 Immature Gran % 0.3 0.4 Neutrophils % 58.3 45.8 Lymphocytes % 27.6 38.4 Monocytes % 13.0 11.7 Eosinophils % 0.6 3.1 Basophils % 0.2 0.6 Nucleated RBC % 0.0 0.0 Absolute Neutrophils 3.60 2.35 Absolute Lymphocytes 1.70 1.97 Absolute Monocytes 0.80 0.60 Absolute Eosinophils 0.04 0.16 Absolute Basophils 0.01 0.03 VBG pH VBG pCO2 VBG pO2 VBG HCO3 VBG Total CO2 VBG O2 Saturation VBG Base Excess VBG Lactate Sodium 140 140 Potassium 3.8 3.8 Chloride 106 106 Carbon Dioxide 24.7 25.9 Anion Gap 9.3 8.1 BUN 10 10 Creatinine 1.01 1.02 Est GFR (CKD-EPI 2020) 81.95 81.02 Glucose 106 98 Calcium 8.5 8.5 Magnesium 2.0 Total Bilirubin 0.50 AST 23 ALT 37 Alkaline Phosphatase 101 Total Protein 7.5 Albumin 3.9 Lipase Urine Color Urine Clarity Urine pH Ur Specific [place] Urine Protein Urine Ketones Urine Blood Urine Nitrite Urine Bilirubin Urine Urobilinogen Ur Leukocyte Esterase Urine RBC Urine WBC Ur Epithelial Cells Urine Crystals Urine Bacteria Urine Casts Urine Mucus Urine Other Ur Culture Indicated? Urine Glucose % CD3 Cells Pending Absolute CD3 Count Pending % CD4 Cells Pending Absolute CD4 Count Pending CD4/CD8 Ratio Pending % CD8 Cells Pending Absolute CD8 Count Pending COVID-19 Source SARS-CoV-2 (PCR) Influenza Type A (PCR) Influenza Type B (PCR) RSV (PCR) Add-On Test Request DONE Preliminary micro results at discharge 07/03/25 03:40 Blood Blood Culture - Preliminary NO GROWTH 24 HOURS 07/03/25 03:17 Blood Blood Culture - Preliminary NO GROWTH 24 HOURS PFSH All Active Problems (Updated 07/03/25 @ 13:52 by Iliana Vazquez APRN) Depression (Chronic) Sepsis (Acute) Anemia (Chronic) Proteinuria (Acute) Hematuria (Acute) HIV (human immunodeficiency virus infection) (Acute) Pneumonia (Acute) Nausea & vomiting (Acute) HIV (human immunodeficiency virus infection) (Acute) Hematuria (Acute) Pneumonia (Acute) Social History Smoking/Tobacco Use Status: Current every day Tobacco Type: cigarettes Smoking risk assessment performed?: Yes Drug use: Never Substance use type: does not use Housing: house Time Spent with Patient Time Spent with Patient: >85 minutes Time was spent: preparing to see the patient(eg.review tests), obtaining and/or reviewing separately otained hiistory, ordering medications,tests, procedures, referring, communicating with other health hospice care transitions coordinator, indepentently interpreting results, counseling the patient, care coordination and other
[2025-07-04 13:50] LABS: CD3 64 % (56-84); CD4 44 % (31-64); CD8 19 % (9-39)
[2025-07-04] MEDS: FLU Vaccine TS 2025-26 PF (36MOS UP) 45 MCG/0.5 ML SYR IM (15:08)
== END 2025-07-04 15:29 | disposition home or self-care (01) ==
LOC: ER 06:10 → MS 06:16
PROVIDERS: Admitting Provider Hospitalist; Emergency Provider Student in an Organized Health Care Education/Training Program; Responsible Provider Nurse Practitioner Acute Care; Visit Provider Hospitalist
DX: A41.9 Sepsis, unspecified organism (principal); J18.9 Pneumonia, unspecified organism; R31.9 Hematuria, unspecified; Z21 Asymptomatic human immunodeficiency virus [HIV] infection status; R11.2 Nausea with vomiting, unspecified; F32.A Depression, unspecified; D64.9 Anemia, unspecified; F17.210 Nicotine dependence, cigarettes, uncomplicated
CPT/HCPCS: 00123; 36415; 80048; 80053; 82805; 83690; 87040; 87637; 90656; 93005; 71046; 81003; 81015; 83605; 83735; 85025; 86359; 86360; 93010; 99223; 99239; G0378; J0131; J0456; J0696; J1885; J2405